=== PATIENT | male | born 1940 | race Caucasian/White ===

== ENCOUNTER 2016-05-21 08:01 | Outpatient (CLI) | payer MEDICARE, OTHER ==
[2014-11-10 10:48] VITALS: BP 121/69
[2016-05-21 08:29] LABS: BASOPHILS % 0.3 (0.0-1.5); EOSINOPHILS % 2.7 % (0.0-6.8); LYMPHOCYTES # 1.6 # k/uL (0.6-4.0); MEAN CORPUSCULAR HEMOGLOBIN 32.5 pg (28.0-34.0); MONOCYTES # 0.4 # k/uL (0.0-0.9); MONOCYTES % 5.8 % (0.0-11.0); NEUTROPHILS # 4.2 # k/uL (1.4-7.7)
[2016-05-21 08:52] LABS: eGFR (African) > 60; eGFR (Non-African) > 60
== END 2016-05-21 08:10 ==
LOC: LAB 08:01
PROVIDERS: ATTEND Family Medicine
DX: I10 Essential (primary) hypertension (principal); E11.9 Type 2 diabetes mellitus without complications; E78.1 Pure hyperglyceridemia; F79 Unspecified intellectual disabilities
CPT/HCPCS: 36415; 80053; 80061; 83036; 85025

== ENCOUNTER 2016-08-14 15:17 | Outpatient (CLI) | payer MEDICARE, OTHER ==
[2014-11-10 10:48] VITALS: BP 121/69
== END 2016-08-14 15:19 ==
LOC: POD 15:17
PROVIDERS: ATTEND Podiatrist
DX: B35.1 Tinea unguium (principal); M79.674 Pain in right toe(s); M79.675 Pain in left toe(s)
CPT/HCPCS: G0463

== ENCOUNTER 2016-10-22 16:20 | Outpatient (CLI) | payer MEDICARE ==
[2014-11-10 10:48] VITALS: BP 121/69
== END 2016-10-22 16:21 ==
LOC: LABRHC 16:20
PROVIDERS: ATTEND Family Medicine
DX: E11.9 Type 2 diabetes mellitus without complications (principal)
CPT/HCPCS: 82043

== ENCOUNTER 2016-11-27 14:43 | Outpatient (CLI) | payer MEDICARE ==
[2014-11-10 10:48] VITALS: BP 121/69
== END 2016-11-27 14:44 ==
LOC: POD 14:43
PROVIDERS: ATTEND Podiatrist
DX: B35.1 Tinea unguium (principal); M79.674 Pain in right toe(s); M79.675 Pain in left toe(s)
CPT/HCPCS: 11721; G0463

== ENCOUNTER 2017-02-11 08:08 | Outpatient (CLI) | payer MEDICARE, OTHER ==
[2014-11-10 10:48] VITALS: BP 121/69
[2017-02-11 08:30] LABS: BASOPHILS % 0.5 (0.0-1.5); EOSINOPHILS % 2.4 % (0.0-6.8); MEAN CORPUSCULAR HEMOGLOBIN 31.6 pg (28.0-34.0); MONOCYTES % 4.4 % (0.0-11.0); NEUTROPHILS # 5.4 # k/uL (1.4-7.7)
[2017-02-11 08:56] LABS: eGFR (African) > 60; eGFR (Non-African) > 60
== END 2017-02-11 08:10 ==
LOC: LAB 08:08
PROVIDERS: ATTEND Family Medicine
DX: E11.9 Type 2 diabetes mellitus without complications (principal); D64.9 Anemia, unspecified
CPT/HCPCS: 36415; 80053; 80061; 83036; 85025

== ENCOUNTER 2017-02-18 13:55 | Outpatient (CLI) | payer MEDICARE ==
[2014-11-10 10:48] VITALS: BP 121/69
[2017-02-18 14:17] LABS: APPEARANCE,URINE Clear (CLEAR); COLOR,URINE Yellow (YELLOW); OCCULT BLOOD,URINE 1+ (NEGATIVE); PH URINE 5.5 (5.0 - 8.0); UROBILINOGEN URINE 0.2 Eu (0.2-1.0)
[2017-02-18 14:36] LABS: AMORPHOUS SEDIMENT,UR FEW (NEGATIVE)
--- NOTE | 2017-02-18 16:26 | Diagnostic Imaging Report ---
[facility] [address] [facility].[address] [address] Report Submission Date: Feb 18, 2017 2:36:28 PM CDT Patient Study Name: JANET CLINTON Date: Feb 18, 2017 2:19:30 PM CDT Modality Type: CR Gender: M Description: CHEST : 42 Institution: [facility] Physician: LISA JUAREZ - OP Examination: Portable chest History: Chest discomfort Comparison exam: None available Findings: Single view of the chest demonstrates a hypoventilated inspiratory effort crowding of the cardiac and mediastinal silhouette. Chronic appearing interstitial changes. Lung jalloh without focal infiltrate. No effusion. Osseous structures are appropriate for age. Impression: Poor inspiratory effort. Chronic appearing interstitial changes. No gross consolidation effusion. Electronically signed on Feb 18, 2017 2:36:28 PM CDT by: Home Pritchard Lateral view now available for review Mild haziness involving the posterior sulci suggesting posterior infiltrate/ effusion. Addendum electronically signed by Home Pritchard on February 18, 2017 3:22:43 PM CDT [facility]
== END 2017-02-18 13:56 ==
LOC: LAB 13:55
PROVIDERS: ATTEND Family Medicine
DX: R06.09 Other forms of dyspnea (principal); R07.2 Precordial pain; R35.0 Frequency of micturition
CPT/HCPCS: 71020; 81002; 84484

== ENCOUNTER 2017-03-19 15:50 | Outpatient (CLI) | payer MEDICARE ==
[2014-11-10 10:48] VITALS: BP 121/69
== END 2017-03-19 15:52 ==
LOC: POD 15:50
PROVIDERS: ATTEND Podiatrist
DX: M79.674 Pain in right toe(s) (principal); M79.675 Pain in left toe(s); L60.0 Ingrowing nail; R60.9 Edema, unspecified
CPT/HCPCS: 11721; G0463

== ENCOUNTER 2017-06-10 09:57 | Emergency (ER) | payer MEDICARE, OTHER ==
--- NOTE | 2017-06-10 10:19 | ED Physician Documentation ---
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 Pt has had cough, and weakness x 1 day. He is much less active than usual. No n/v/diarrhea. Normal bm's.) - ROS CONST: other (Pt cannot give ROS) - PAST HX Past History: other (IDDM, HTN) Allergies/Adverse Reactions: Allergies Allergy/AdvReac Type Severity Reaction Status Date / Time No Known Allergies Allergy Verified 06/10/17 10:13 Home Medications: Ambulatory Orders Medication Instructions Recorded Docusate Sodium 100 mg PO HS u2 02/07/15 Azithromycin [Zithromax] 250 mg PO DAILY #6 tablet 06/10/17 Benzonatate [Tessalon] 100 mg PO Q8H PRN #20 capsule 06/10/17 - SOCIAL HX Smoking History: non-smoker - FAMILY HX Family History: No - VITAL SIGNS Vital Signs: Vital Signs Temp Pulse Resp BP Pulse Ox 121/69 11/10/14 10:47 - REVIEWED ASSESSMENTS Nursing Assessment Reviewed: Yes Vitals Reviewed: Yes Progress - Progress Progress: CXR PA/Lat: Findings: PA lateral chest demonstrate a normal cardiac and mediastinal silhouette. Generalized increased parenchymal haziness involving the left hemithorax when compared with the right. No blunting of the costophrenic margins. Articular degenerative changes. Impression: Generalized left hemithorax increased parenchymal haziness when compared with the right - while a component of this may artifactual and due to patient's body habitus, cannot exclude diffuse infiltrate: correlate with patient symptoms. No effusion. Rx Azithromycin 250 mg. Take two tablets by mouth on days #1. Take one tablet once daily for the next 4 days. Refill Tessalon 100 mg. Take one every 8 hrs as needed for cough. Disp: #20. General Adult Physical Exam - PHYSICAL EXAM GENERAL APPEARANCE: mild distress EENT: pharynx normal NECK: normal inspection, supple RESPIRATORY: no resp distress, chest non-tender, breath sounds normal CVS: reg rate & rhythm, heart sounds normal ABDOMEN: soft, no organomegaly, normal bowel sounds BACK: normal inspection, no CVA tenderness SKIN: warm/dry, normal color EXTREMITIES: non-tender, normal range of motion NEURO: motor nml, sensation nml, other (baseline mental status) Discharge Clincal Impression: possible early pneumonia Prescriptions: Azithromycin [Zithromax] 250 mg PO DAILY #6 tablet Benzonatate [Tessalon] 100 mg PO Q8H PRN #20 capsule PRN Reason: Cough Referrals: Goyo Yan MD [Primary Care Provider] - Condition: Stable Disposition: 01 HOME, SELF-CARE Decision to Admit: NO Decision Time: 11:41
[2017-06-10] MEDS ORDERED: 0.9 % SODIUM CHLORIDE 500 ML IV ONE (10:24)
[2017-06-10 10:47] LABS: BASOPHILS % 1.2 (0.0-1.5); EOSINOPHILS % 2.3 % (0.0-6.8); MEAN CORPUSCULAR HEMOGLOBIN 32.8 pg (28.0-34.0); MEAN CORPUSCULAR VOLUME 96.6 fl (80.0-100.0); MONOCYTES % 10.2 % (0.0-11.0); NEUTROPHILS # 3.6 # k/uL (1.4-7.7)
[2017-06-10 11:06] LABS: eGFR (African) > 60; eGFR (Non-African) > 60
--- NOTE | 2017-06-10 11:23 | Diagnostic Imaging Report ---
[facility] [address] [facility] [address] [place], [place]. [address] Report Submission Date: Jun 10, 2017 11:04:10 AM RN CARDIOLOGY Patient Study Name: JANET CLINTON Date: Jun 10, 2017 10:46:27 AM RN CARDIOLOGY Modality Type: CR Gender: M Description: CHEST : 42 Institution: [facility] Physician: AILYN SINGH Examination: PA and lateral chest. History: COUGH. (Hx) / COUGH (DICOM Hx) / COUGH (Pt comments) Comparison exam: 18 February 2017. Findings: PA lateral chest demonstrate a normal cardiac and mediastinal silhouette. Generalized increased parenchymal haziness involving the left hemithorax when compared with the right. No blunting of the costophrenic margins. Articular degenerative changes. Impression: Generalized left hemithorax increased parenchymal haziness when compared with the right - while a component of this may artifactual and due to patient's body habitus, cannot exclude diffuse infiltrate: correlate with patient symptoms. No effusion. Electronically signed on Jun 10, 2017 11:04:10 AM RN CARDIOLOGY by: Home POWELL
[2017-06-10 12:15] VITALS: BP 124/62
[2017-06-11 06:03] LABS: APPEARANCE,URINE CLEAR (CLEAR); COLOR,URINE YELLOW (YELLOW); OCCULT BLOOD,URINE TRACE-INTACT (NEGATIVE); PH URINE 5.5 (5.0 - 8.0)
[2017-06-11 06:04] LABS: UROBILINOGEN URINE 0.2 Eu (0.2-1.0)
== END 2017-06-10 12:13 | disposition home or self-care (01) ==
LOC: ED 09:57
DX: R05 Cough (principal)
CPT/HCPCS: 71020; 80053; 81002; 85025; J7060; 96365; 99282; 99283; S1016

== ENCOUNTER 2017-06-11 11:30 | Inpatient (IN) | payer MEDICARE, OTHER ==
--- NOTE | 2017-06-11 12:08 | ED Physician Documentation ---
Upper Respiratory Symptoms - HISTORIAN Historian: patient - HPI Chief Complaint: Cough/ Upper Respiratory Additional Information: 77yo white male with MR, started to have some increase irritability, decrease appetite, cough over the last 3 days. No wheezing noted. Not known if productive or not. Started running fever to 101 this AM. Was seen in the ED yesterday. Has been exposed to some flu. Blood sugars have been stable. Has been more lethargic today. Onset: days ago (2) Severity: mild Associated Symptoms: fever, chills, sweating, runny nose, productive cough, shortness of breath. denies: sinus pain, sinus drainage, sore throat, hoarseness, chest pain, bloody cough Worsened by Deep Breath: No Further Comments: no - ROS CONST/EYES: weakness CVS/RESP: shortness of breath. denies: chest pain, palpitations LYMPH: denies: leg swelling, rash GI/: denies: abdominal pain, vomiting, nausea, diarrhea - PAST HX Lung Disease: denies: asthma, COPD, pneumothorax PE Risk Factors: hypertension, other (MR, DM type 2) Surgeries/Procedures: none Immunizations: UTD Allergies/Adverse Reactions: Allergies Allergy/AdvReac Type Severity Reaction Status Date / Time No Known Allergies Allergy Verified 06/11/17 12:34 Home Medications: Ambulatory Orders Medication Instructions Recorded Docusate Sodium 100 mg PO HS u2 02/07/15 Azithromycin [Zithromax] 250 mg PO DAILY #6 tablet 06/10/17 Benzonatate [Tessalon] 100 mg PO Q8H PRN #20 capsule 06/10/17 - SOCIAL HX Smoking History: non-smoker Alcohol Use: none Drug Use: none - FAMILY HX Family History: no significant history - VITAL SIGNS Vital Signs: Vital Signs Temp Pulse Resp BP Pulse Ox 97.9 F 92 H 28 H 108/49 97 06/11/17 11:31 06/11/17 15:04 06/11/17 15:04 06/11/17 14:56 06/11/17 14:56 - REVIEWED ASSESSMENTS Nursing Assessment Reviewed: Yes Vitals Reviewed: Yes ED Results Lab/Radiology - Lab Results Lab Results: Lab Results 06/11/17 06/11/17 12:20 12:20 WBC 5.40 K/ul K/ul (4.00-12.00) RBC 3.72 M/ul L M/ul (3.90-5.20) Hgb 12.2 g/dL g/dL (12.0-18.0) Hct 36.7 % L % (37.0-53.0) MCV 98.5 fl fl (80.0-100.0) MCH 32.8 pg pg (28.0-34.0) MCHC 33.3 g/dL g/dL (30.0-36.0) RDW 12.9 % % (11.3-14.3) Plt Count 112 K/mm3 L K/mm3 (130-400) Seg Neutrophils % 73 % % (39-79) Band Neutrophils % 6 % % (0-12) Lymphocytes % 11 % L % (16-50) Monocytes % 9 % % (0-11) Reactive Lymphocytes 1 % % (0-5) Plt Morphology Comment Normal (NORMAL) RBC Morph Comment Normal (NORMAL) Sodium 138 mmol/L mmol/L (136-145) Potassium 4.9 mmol/L mmol/L (3.5-5.1) Chloride 99 mmol/L mmol/L (98-107) Carbon Dioxide 24 mmol/L mmol/L (22-30) BUN 19 mg/dL mg/dL (9-20) Creatinine 1.20 mg/dL mg/dL (0.66-1.25) Estimated Creat Clear 48 Est GFR ( Amer) > 60 (60 - ) Est GFR (Non-Af Amer) > 60 (60 - ) Glucose 117 mg/dL H mg/dL (74-106) Calcium 9.1 mg/dL mg/dL (8.4-10.2) Total Bilirubin 0.8 mg/dL mg/dL (0.2-1.3) AST 42 U/L U/L (15-46) ALT 44 U/L U/L (13-69) Alkaline Phosphatase 104 U/L U/L (38-126) Total Protein 6.9 g/dL g/dL (6.3-8.2) Albumin 3.8 g/dL g/dL (3.5-5.0) - Radiology Radiology Impressions: Examination: Portable chest History: COUGH, FEVER, POSSIBLE PNEUMONIA (Hx) / COUGH, FEVER (DICOM Hx) / COUGH , FEVER (Pt comments) Comparison exam: 10 June 2017 Findings: Single view of the chest demonstrates a poor inspiratory effort resulting in crowding of the normal cardiac and mediastinal silhouette. Mildly prominent parenchymal interstitium without focal consolidative process. No blunting of the costophrenic margins. Articular degenerative changes. Impression: Continued prominent parenchymal interstitium without focal consolidative process or effusion. Consider high-resolution CT chest for better lung parenchymal evaluation/definition. radiologist advised to get CT scan but patient will not stay still enough to get a good image. - Orders Orders: ED Orders Category Date Time Status CHEST 1VIEW [RAD] Routine Exams 06/11/17 Completed BLOOD CULTURE Routine Lab 06/11/17 12:45 Received CBC/PLATELET/DIFF Routine Lab 06/11/17 12:20 Completed CMP Routine Lab 06/11/17 12:20 Completed URINALYSIS Routine Lab 06/11/17 Ordered Chem Sticks Med 06/11/17 12:03 Discontinued 1 each MC NOW ONE Upper Respiratory Symptoms - EXAM General Appearance: alert, mild distress EENT: eyes nml inspection, ear nml, nose nml, rhinorrhea (clear), pharyngeal erythema (mild). No: pain over sinuses Neck: normal inspection, supple Respiratory: no resp. distress, no pain on inspiration, speaks full sentences, respiratory distress (mild), rales, rhonchi Abdomen: non-tender, no organomegaly CVS: reg rate & rhythm, heart sounds normal, equal pulses, murmur Skin: color nml, no rash, warm,dry Extremities: non-tender, no edema Neuro/Psych: mood/affect nml (at baseline) Discharge Clincal Impression: Pneumonia Qualifiers: Pneumonia type: due to unspecified organism Laterality: bilateral Lung location : lower lobe of lung Qualified Code(s): J18.9 - Pneumonia, unspecified organism Condition: Stable Disposition: ADMITTED INPATIENT Decision to Admit: [id number] Date of Decison to Admit: 06/11/17 Decision Time: 14:58
[2017-06-11 12:32] LABS: MEAN CORPUSCULAR HEMOGLOBIN 32.8 pg (28.0-34.0); MEAN CORPUSCULAR VOLUME 98.5 fl (80.0-100.0)
[2017-06-11 12:39] LABS: eGFR (African) > 60; eGFR (Non-African) > 60
[2017-06-11 12:59] LABS: MONOCYTES % 9 % (0-11); SEGMENTED NEUTROPHILS % 73 % (39-79)
--- NOTE | 2017-06-11 14:57 | Diagnostic Imaging Report ---
RAMIREZ MILLER [facility] [address] [facility] [address] [address] Report Submission Date: Jun 11, 2017 12:45:06 PM FINANCIAL ECONOMIST Patient Study Name: JANET CLINTON Date: Jun 11, 2017 12:25:02 PM FINANCIAL ECONOMIST Modality Type: CR Gender: M Description: CHEST : 42 Institution: [facility] Physician: RAMIREZ MILLER Examination: Portable chest History: COUGH, FEVER, POSSIBLE PNEUMONIA (Hx) / COUGH, FEVER (DICOM Hx) / COUGH , FEVER (Pt comments) Comparison exam: 10 June 2017 Findings: Single view of the chest demonstrates a poor inspiratory effort resulting in crowding of the normal cardiac and mediastinal silhouette. Mildly prominent parenchymal interstitium without focal consolidative process. No blunting of the costophrenic margins. Articular degenerative changes. Impression: Continued prominent parenchymal interstitium without focal consolidative process or effusion. Consider high-resolution CT chest for better lung parenchymal evaluation/definition. Electronically signed on Jun 11, 2017 12:45:06 PM FINANCIAL ECONOMIST by: Home POWELL
[2017-06-11] MEDS ORDERED: ACETAMINOPHEN 325 MG TABLET PO PRN (15:33)
[2017-06-11] MEDS ORDERED: LEVOFLOXACIN 500MG/D5W 100ML 100 ML IV ONE ×2 (16:01→21:49)
[2017-06-11] MEDS: BUSPIRONE HCL 5 MG TABLET PO SCH ×2 (16:12→21:35)
[2017-06-11] MEDS: SIMVASTATIN 20 MG TABLET PO SCH ×2 (16:12→21:36)
[2017-06-11] MEDS: ENOXAPARIN SODIUM 30 MG/0.3 ML DISP.SYRIN SQ SCH (16:12)
[2017-06-11] MEDS: IPRATROPIUM/ALBUTEROL SULFATE 3 ML AMPUL.NEB NEB SCH (16:48)
[2017-06-11 18:26] VITALS: BMI 24.5
[2017-06-11] MEDS: 0.9 % SODIUM CHLORIDE 1,000 ML IV SCH (18:30)
[2017-06-11] MEDS: LEVOFLOXACIN 500MG/D5W 100ML 500 MG in PREMIX BAG 1 BAG IV SCH (18:31)
[2017-06-11] MEDS: INSULIN DETEMIR 100 UNIT/ML 3ML PEN.INJCTR SQ SCH ×2 (18:44→21:36)
[2017-06-11] MEDS: BENZONATATE 100 MG CAPSULE PO SCH (21:36)
[2017-06-11] MEDS ORDERED: PHARMACY KEY 1 EACH EACH MC ONE (23:10)
[2017-06-11] MEDS: ZIPRASIDONE HCL 20 MG CAP PO SCH (23:20)
[2017-06-12] MEDS: IPRATROPIUM/ALBUTEROL SULFATE 3 ML AMPUL.NEB NEB SCH ×4 (00:23→17:59)
[2017-06-12] MEDS: 0.9 % SODIUM CHLORIDE 1,000 ML IV SCH ×3 (02:30→18:48)
[2017-06-12 06:17] LABS: APPEARANCE,URINE CLEAR (CLEAR); COLOR,URINE AMBER (YELLOW); OCCULT BLOOD,URINE 1+ (NEGATIVE); PH URINE 5.5 (5.0 - 8.0)
[2017-06-12 07:17] LABS: MEAN CORPUSCULAR HEMOGLOBIN 32.7 pg (28.0-34.0); MEAN CORPUSCULAR VOLUME 98.7 fl (80.0-100.0)
[2017-06-12 07:31] LABS: eGFR (African) > 60; eGFR (Non-African) > 60
[2017-06-12 07:47] LABS: MONOCYTES % 11 % (0-11); SEGMENTED NEUTROPHILS % 71 % (39-79)
[2017-06-12 08:11] LABS: ADENOVIRUS DNA NEGATIVE (NEGATIVE); SOURCE: NASOPHARYNGEAL SWAB
[2017-06-12] MEDS: BUSPIRONE HCL 5 MG TABLET PO SCH ×2 (09:48→20:05)
[2017-06-12] MEDS: AZITHROMYCIN 250 MG TABLET PO SCH (09:48)
[2017-06-12] MEDS: ASPIRIN EC 325 MG TABLET.DR PO SCH (09:48)
[2017-06-12] MEDS: LISINOPRIL 5 MG TABLET PO SCH (09:49)
[2017-06-12] MEDS: BENZONATATE 100 MG CAPSULE PO SCH ×2 (09:50→20:05)
[2017-06-12] MEDS: ZIPRASIDONE HCL 20 MG CAP PO SCH ×2 (09:51→21:14)
[2017-06-12] MEDS: DOCUSATE SODIUM 100 MG CAPSULE PO SCH (09:51)
[2017-06-12] MEDS: LEVOFLOXACIN 500MG/D5W 100ML 500 MG in PREMIX BAG 1 BAG IV SCH (09:51)
[2017-06-12] MEDS ORDERED: LEVOFLOXACIN 500MG/D5W 100ML 100 ML IV ONE (09:59)
[2017-06-12] MEDS: ENOXAPARIN SODIUM 30 MG/0.3 ML DISP.SYRIN SQ SCH (16:52)
[2017-06-12] MEDS: INSULIN DETEMIR 100 UNIT/ML 3ML PEN.INJCTR SQ SCH (20:06)
[2017-06-12] MEDS: SIMVASTATIN 20 MG TABLET PO SCH (20:08)
[2017-06-12] MEDS ORDERED: PHARMACY KEY 1 EACH EACH MC ONE (20:40)
[2017-06-13] MEDS: IPRATROPIUM/ALBUTEROL SULFATE 3 ML AMPUL.NEB NEB SCH ×4 (00:21→18:08)
[2017-06-13] MEDS: 0.9 % SODIUM CHLORIDE 1,000 ML IV SCH ×2 (05:08→16:29)
[2017-06-13] MEDS: BUSPIRONE HCL 5 MG TABLET PO SCH ×2 (09:15→20:39)
[2017-06-13] MEDS: DOCUSATE SODIUM 100 MG CAPSULE PO SCH (09:15)
[2017-06-13] MEDS: ASPIRIN EC 325 MG TABLET.DR PO SCH (09:16)
[2017-06-13] MEDS: AZITHROMYCIN 250 MG TABLET PO SCH (09:16)
[2017-06-13] MEDS: BENZONATATE 100 MG CAPSULE PO SCH ×2 (09:16→20:39)
[2017-06-13] MEDS: LISINOPRIL 5 MG TABLET PO SCH (09:16)
[2017-06-13] MEDS ORDERED: LEVOFLOXACIN 500MG/D5W 100ML 100 ML IV ONE ×3 (09:19→21:47)
[2017-06-13] MEDS: ZIPRASIDONE HCL 20 MG CAP PO SCH ×2 (09:20→20:39)
[2017-06-13] MEDS: LEVOFLOXACIN 500MG/D5W 100ML 500 MG in PREMIX BAG 1 BAG IV SCH (11:38)
[2017-06-13] MEDS: ENOXAPARIN SODIUM 30 MG/0.3 ML DISP.SYRIN SQ SCH (16:29)
[2017-06-13] MEDS: SIMVASTATIN 20 MG TABLET PO SCH (20:39)
[2017-06-13] MEDS: INSULIN DETEMIR 100 UNIT/ML 3ML PEN.INJCTR SQ SCH (21:21)
[2017-06-14] MEDS: 0.9 % SODIUM CHLORIDE 1,000 ML IV SCH (01:47)
[2017-06-14] MEDS: IPRATROPIUM/ALBUTEROL SULFATE 3 ML AMPUL.NEB NEB SCH ×3 (06:34→11:07)
[2017-06-14 09:09] VITALS: BP 132/74
[2017-06-14] MEDS: LISINOPRIL 5 MG TABLET PO SCH (09:24)
[2017-06-14] MEDS: ZIPRASIDONE HCL 20 MG CAP PO SCH (09:24)
[2017-06-14] MEDS: BENZONATATE 100 MG CAPSULE PO SCH (09:24)
[2017-06-14] MEDS: AZITHROMYCIN 250 MG TABLET PO SCH (09:24)
[2017-06-14] MEDS: BUSPIRONE HCL 5 MG TABLET PO SCH (09:24)
[2017-06-14] MEDS: DOCUSATE SODIUM 100 MG CAPSULE PO SCH (09:24)
[2017-06-14] MEDS: ASPIRIN EC 325 MG TABLET.DR PO SCH (09:24)
[2017-06-14] MEDS: LEVOFLOXACIN 500MG/D5W 100ML 500 MG in PREMIX BAG 1 BAG IV SCH (09:25)
--- NOTE | 2017-07-08 07:44 | History and Physical Report ---
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 Not known if cough is productive or not. Started running fever to 101 this AM. Was seen in the ED yesterday and felt to have a viral illnes. Has been exposed to some flu. Blood sugars have been stable. Has been more lethargic today. Started to have some increase dyspnea. Patient was positive for influenza type B. Patient was subsequently admitted to the hospital for further care and evaluation and treatment of his dyspnea. 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) Endocrine: Diabetes (type 2) - Past Surgical History Past Surgical History: None - Past Family History Mother Family History: Brother 1 Family History: - Past Social History Smoke: # pack years Occupation: disable Alcohol: None Drugs: None Lives: Alone Domestic Violence: Negative - Health Maintenance Health Maintenance: Cholesterol, Influenza Vaccine, Pneumococcal Vaccine Influenza Vaccine: Current for this Influenza Season Pneumonia Vaccine: Yes Resuscitation Status: Resusciation Status Resuscitation Status Full Code - Unable to Obtain History Unable to Obtain: Yes Review of Systems - Review of Systems Constitutional: Fever, Chills, Sweats, Weakness Eyes: negative: pain, vision change ENT: negative: Ear Pain, Ear Discharge, Nose Pain, Nose Discharge, Nose Congestion, Mouth Pain Respiratory: Cough, Dry, Shortness of Breath, SOB with Excertion. negative: Hemoptysis, Pleuritic Pain, Sputum Cardiovascular: negative: Chest Pain, Palpitations, Orthopnea, Edema Gastrointestinal: negative: Nausea, Vomiting, Abdominal Pain, Diarrhea, Constipation, Melena Genitourinary: negative: Dysuria, Frequency, Incontinence Musculoskeletal: negative: Neck Pain, Shoulder Pain Skin: Rash Neurological: Weakness, Confusion (at baseline). negative: Numbness, Incoordination, Change in Speech, Seizures - Medications/Allergies Allergies/Adverse Reactions: Allergies Allergy/AdvReac Type Severity Reaction Status Date / Time No Known Allergies Allergy Verified 06/11/17 12:34 Exam - Exam General: Oriented to Person, Cooperative, Mild distress. No: Alert (more lethargic thenbaseline), Oriented to Place, Oriented to Time HEENT: Atraumatic, PERRLA, Nose Mucous membr. moist/[place], Edentulous, Decreased Hearing Acuity. No: Mouth Mucous membr. moist/[place] (dry) Neck: Normal Range of Motion. No: Stridor, Rigidity, Lymphadenopathy Carotids: WNL Thyroid: WNL Lungs: Speaks full Sentences, Respiratory Distress, Wheezes, Rhonchi (course bilateral) Cardiovascular: Regular rate, Normal S1, Normal S2, No murmurs Abdomen: Normal bowel sounds, Soft, No tenderness, No hepatospenomegaly, No masses. No: Distended Integumentary: Normal, [place], Warm, Dry Extremities: No clubbing, No cyanosis, Other (trace edema) Neurological: Normal speech, Strength Equal Bilat, Normal tone, Sensation intact , Cranial nerves 3-12 NL, Reflexes 2+. No: Normal gait (ataxic aat baseline) Psych/Mental Status: Mental status NL (at baseline), Mood NL, Intact Judgment - Laboratory Results Laboratory Results: Laboratory Results 06/11/17 06/12/17 06/12/17 16:10 07:05 07:05 WBC 4.40 RBC 3.54 L Hgb 11.6 L Hct 34.9 L MCV 98.7 MCH 32.7 MCHC 33.1 RDW 12.9 Plt Count 254 Seg Neutrophils % 71 Band Neutrophils % 4 Lymphocytes % 14 L Monocytes % 11 Plt Morphology Comment Normal RBC Morph Comment Normal Sodium 141 Potassium 4.0 Chloride 104 Carbon Dioxide 21 L BUN 13 Creatinine 1.00 Estimated Creat Clear 57 Est GFR ( Amer) > 60 Est GFR (Non-Af Amer) > 60 Glucose 69 L Calcium 8.6 Total Bilirubin 0.6 AST 40 ALT 42 Alkaline Phosphatase 90 Total Protein 6.5 Albumin 3.5 Adenovirus DNA Negative B. pertussis DNA (PCR) Negative C. pneumoniae DNA (PCR) Negative Coronavirus OC43 (PCR) Negative Coronavirus HKU1 (PCR) Negative Coronavirus 229E (PCR) Negative Coronavirus NL63 (PCR) Negative Human Metapneumovir RNA Negative Influenza A (H1) PCR Negative Influenza A (H1N1) Ab Negative Influenza A (H1N1) Ag Negative Influenza A (H3) Ab Negative H.influenzae Type B Ab Positive H M.pneumoniae DNA (PCR) Negative Parainfluenza 1 (PCR) Negative Parainfluenza 2 (PCR) Negative Parainfluenza 3 (PCR) Negative Parainfluenza 4 (PCR) Negative RSV (PCR) Negative Rhinovirus (PCR) Negative Virus Source Nasopharyngeal swab Assessment/Plan - Assessment/Plan (1) Bronchitis Status: Acute Assessment: Patient will be started on Levaquin and azithromycin. I believe that the patient may be developing an early pneumonia that is not progress that it is showing up on the chest x-ray at this time. Influenza study are pending. 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 (3) Essential hypertension Status: Acute Assessment: Patient will be continued on home medications and blood pressure will be monitored. (4) Mental retardation Status: Acute Assessment: stable VTE Assessment - RISK FACTOR SCORE VTE <18 YEARS OF AGE: PATIENT IS < 18 YEARS OF AGE VTE RISK FACTOR SCORES: ACUTE INFECTION OTHER THEN SEPSIS, ACUTE RESPIRATORY FAILURE/SEVERE COPD, ANTICIPATED BED CONFINEMENT OR IMMOBILIZATION > 24 HOURS - RISK VTE HIGH RISK: SCORE OF 3-4 (RISK PROXIMAL DVT 4-8%) PROPHYLAXIS NEEDED
--- NOTE | 2017-07-08 07:58 | Inpatient Progress Note ---
Subjective - Required Recertification Statement I anticipate X number of days because-include discharge plan: 2 days - Review of Systems Events since last encounter: Patient continues to have some course rhonchi bilaterally. Patient influenza test did come back positive for type B influenza. Patient continues to have's some shortness of breath and dyspnea. Patient denies any chest pain at this time. General: Chills Pulmonary: Dyspnea, Cough. Denies: Pleuritic Chest Pain Cardiovascular: Denies: Chest Pain, Palpitations Gastrointestinal: Denies: Nausea, Vomiting, Abdominal Pain, Diarrhea, Constipation Objective - Exam Vitals and I&O: Vital Signs Temp 98.1 F 06/14/17 09:08 Pulse 63 06/14/17 14:00 Resp 20 06/14/17 14:00 BP 132/74 06/14/17 09:08 Pulse Ox 98 06/14/17 09:08 General: Alert, Oriented to Person, Cooperative. No: Oriented to Place, Oriented to Time Neck: Supple, No JVD Lungs: Clear to auscultation, Respiratory Distress. No: Wheezes, Rales, Rhonchi Cardiovascular: Regular rate, Normal S1, Normal S2, No murmurs Abdomen: Normal bowel sounds Extremities: No clubbing, No cyanosis Skin: Normal, [place], Warm, Dry Psych/Mental Status: Mental status NL - Results Results: Laboratory Results WBC 4.40 K/ul (4.00-12.00) 06/12/17 07:05 RBC 3.54 M/ul (3.90-5.20) L 06/12/17 07:05 Hgb 11.6 g/dL (12.0-18.0) L 06/12/17 07:05 Hct 34.9 % (37.0-53.0) L 06/12/17 07:05 MCV 98.7 fl (80.0-100.0) 06/12/17 07:05 MCH 32.7 pg (28.0-34.0) 06/12/17 07:05 MCHC 33.1 g/dL (30.0-36.0) 06/12/17 07:05 RDW 12.9 % (11.3-14.3) 06/12/17 07:05 Plt Count 254 K/mm3 (130-400) 06/12/17 07:05 Seg Neutrophils % 71 % (39-79) 06/12/17 07:05 Band Neutrophils % 4 % (0-12) 06/12/17 07:05 Lymphocytes % 14 % (16-50) L 06/12/17 07:05 Monocytes % 11 % (0-11) 06/12/17 07:05 Reactive Lymphocytes 1 % (0-5) 06/11/17 12:20 Plt Morphology Comment Normal (NORMAL) 06/12/17 07:05 RBC Morph Comment Normal (NORMAL) 06/12/17 07:05 Sodium 141 mmol/L (136-145) 06/12/17 07:05 Potassium 4.0 mmol/L (3.5-5.1) 06/12/17 07:05 Chloride 104 mmol/L (98-107) 06/12/17 07:05 Carbon Dioxide 21 mmol/L (22-30) L 06/12/17 07:05 BUN 13 mg/dL (9-20) 06/12/17 07:05 Creatinine 1.00 mg/dL (0.66-1.25) 06/12/17 07:05 Estimated Creat Clear 57 06/12/17 07:05 Est GFR ( Amer) > 60 (60-) 06/12/17 07:05 Est GFR (Non-Af Amer) > 60 (60-) 06/12/17 07:05 Glucose 69 mg/dL (74-106) L 06/12/17 07:05 Calcium 8.6 mg/dL (8.4-10.2) 06/12/17 07:05 Total Bilirubin 0.6 mg/dL (0.2-1.3) 06/12/17 07:05 AST 40 U/L (15-46) 06/12/17 07:05 ALT 42 U/L (13-69) 06/12/17 07:05 Alkaline Phosphatase 90 U/L (38-126) 06/12/17 07:05 Total Protein 6.5 g/dL (6.3-8.2) 06/12/17 07:05 Albumin 3.5 g/dL (3.5-5.0) 06/12/17 07:05 Urine Color [place] (YELLOW) 06/11/17 12:50 Urine Appearance Clear (CLEAR) 06/11/17 12:50 Urine pH 5.5 (5.0 - 8.0) 06/11/17 12:50 Ur Specific [place] 1.025 (1.010-1.030) 06/11/17 12:50 Urine Protein 3+ mg/dL (NEGATIVE) H 06/11/17 12:50 Urine Ketones Negative mg/dL (NEGATIVE) 06/11/17 12:50 Urine Occult Blood 1+ (NEGATIVE) H 06/11/17 12:50 Urine Nitrite Negative (NEGATIVE) 06/11/17 12:50 Urine Bilirubin Negative (NEGATIVE) 06/11/17 12:50 Urine Urobilinogen 1.0 Eu (0.2-1.0) 06/11/17 12:50 Ur Leukocyte Esterase Negative (NEGATIVE) 06/11/17 12:50 Urine Glucose Negative mg/dL (NEGATIVE) 06/11/17 12:50 Adenovirus DNA Negative (NEGATIVE) 06/11/17 16:10 B. pertussis DNA (PCR) Negative (NEGATIVE) 06/11/17 16:10 C. pneumoniae DNA (PCR) Negative (NEGATIVE) 06/11/17 16:10 Coronavirus OC43 (PCR) Negative (NEGATIVE) 06/11/17 16:10 Coronavirus HKU1 (PCR) Negative (NEGATIVE) 06/11/17 16:10 Coronavirus 229E (PCR) Negative (NEGATIVE) 06/11/17 16:10 Coronavirus NL63 (PCR) Negative (NEGATIVE) 06/11/17 16:10 Human Metapneumovir RNA Negative (NEGATIVE) 06/11/17 16:10 Influenza A (H1) PCR Negative (NEGATIVE) 06/11/17 16:10 Influenza A (H1N1) Ab Negative (NEGATIVE) 06/11/17 16:10 Influenza A (H1N1) Ag Negative (NEGATIVE) 06/11/17 16:10 Influenza A (H3) Ab Negative (NEGATIVE) 06/11/17 16:10 H.influenzae Type B Ab Positive (NEGATIVE) H 06/11/17 16:10 M.pneumoniae DNA (PCR) Negative (NEGATIVE) 06/11/17 16:10 Parainfluenza 1 (PCR) Negative (NEGATIVE) 06/11/17 16:10 Parainfluenza 2 (PCR) Negative (NEGATIVE) 06/11/17 16:10 Parainfluenza 3 (PCR) Negative (NEGATIVE) 06/11/17 16:10 Parainfluenza 4 (PCR) Negative (NEGATIVE) 06/11/17 16:10 RSV (PCR) Negative (NEGATIVE) 06/11/17 16:10 Rhinovirus (PCR) Negative (NEGATIVE) 06/11/17 16:10 Virus Source Nasopharyngeal swab 06/11/17 16:10 Assessment/Plan - Assessment/Plan (1) Influenza B Status: Acute Assessment: started on Tamiflu (2) Bronchitis Status: Acute (3) Essential hypertension Status: Acute Assessment: stable on home meds (4) Mental retardation Status: Acute Assessment: stable with no behavioral problems (5) Diabetes type 2, controlled Status: Chronic Qualifiers: Diabetes mellitus complication status: without complication Diabetes mellitus retirement insulin use: with retirement use Qualified Code(s): E11.9 - Type 2 diabetes mellitus without complications; Z79.4 - termination clerk (current) use of insulin; Z79.4 - penitentiary (current) use of insulin; Z79.4 - penitentiary ( current) use of insulin; Z79.4 - penitentiary (current) use of insulin Assessment: stable on home meds
--- NOTE | 2017-07-08 08:03 | Inpatient Progress Note ---
Subjective - Required Recertification Statement I anticipate X number of days because-include discharge plan: 1 day - Review of Systems Events since last encounter: Patient is much improved this morning. Patient visits breathing is much better. Patient continues to have a slight productive cough of some clear to slightly yellow phlegm. Appetite has been good. Diabetes mellitus and hypertension are stable. Patient continues to run a low-grade fever. General: Denies: Chills Pulmonary: Dyspnea, Cough Cardiovascular: Denies: Chest Pain, Palpitations Gastrointestinal: Denies: Nausea, Vomiting, Abdominal Pain, Diarrhea, Constipation, Melena Objective - Exam Vitals and I&O: Vital Signs Temp 98.1 F 06/14/17 09:08 Pulse 63 06/14/17 14:00 Resp 20 06/14/17 14:00 BP 132/74 06/14/17 09:08 Pulse Ox 98 06/14/17 09:08 General: Alert, Oriented to Person, Cooperative. No: Oriented to Place, Oriented to Time HEENT: Atraumatic Neck: Supple, No JVD Lungs: Normal air movement, Speaks full Sentences, Wheezes, Rales, Rhonchi Cardiovascular: Regular rate, Normal S1, Normal S2, No murmurs - Results Results: Laboratory Results WBC 4.40 K/ul (4.00-12.00) 06/12/17 07:05 RBC 3.54 M/ul (3.90-5.20) L 06/12/17 07:05 Hgb 11.6 g/dL (12.0-18.0) L 06/12/17 07:05 Hct 34.9 % (37.0-53.0) L 06/12/17 07:05 MCV 98.7 fl (80.0-100.0) 06/12/17 07:05 MCH 32.7 pg (28.0-34.0) 06/12/17 07:05 MCHC 33.1 g/dL (30.0-36.0) 06/12/17 07:05 RDW 12.9 % (11.3-14.3) 06/12/17 07:05 Plt Count 254 K/mm3 (130-400) 06/12/17 07:05 Seg Neutrophils % 71 % (39-79) 06/12/17 07:05 Band Neutrophils % 4 % (0-12) 06/12/17 07:05 Lymphocytes % 14 % (16-50) L 06/12/17 07:05 Monocytes % 11 % (0-11) 06/12/17 07:05 Reactive Lymphocytes 1 % (0-5) 06/11/17 12:20 Plt Morphology Comment Normal (NORMAL) 06/12/17 07:05 RBC Morph Comment Normal (NORMAL) 06/12/17 07:05 Sodium 141 mmol/L (136-145) 06/12/17 07:05 Potassium 4.0 mmol/L (3.5-5.1) 06/12/17 07:05 Chloride 104 mmol/L (98-107) 06/12/17 07:05 Carbon Dioxide 21 mmol/L (22-30) L 06/12/17 07:05 BUN 13 mg/dL (9-20) 06/12/17 07:05 Creatinine 1.00 mg/dL (0.66-1.25) 06/12/17 07:05 Estimated Creat Clear 57 06/12/17 07:05 Est GFR ( Amer) > 60 (60-) 06/12/17 07:05 Est GFR (Non-Af Amer) > 60 (60-) 06/12/17 07:05 Glucose 69 mg/dL (74-106) L 06/12/17 07:05 Calcium 8.6 mg/dL (8.4-10.2) 06/12/17 07:05 Total Bilirubin 0.6 mg/dL (0.2-1.3) 06/12/17 07:05 AST 40 U/L (15-46) 06/12/17 07:05 ALT 42 U/L (13-69) 06/12/17 07:05 Alkaline Phosphatase 90 U/L (38-126) 06/12/17 07:05 Total Protein 6.5 g/dL (6.3-8.2) 06/12/17 07:05 Albumin 3.5 g/dL (3.5-5.0) 06/12/17 07:05 Urine Color Mar[place]ruz (YELLOW) 06/11/17 12:50 Urine Appearance Clear (CLEAR) 06/11/17 12:50 Urine pH 5.5 (5.0 - 8.0) 06/11/17 12:50 Ur Specific [place] 1.025 (1.010-1.030) 06/11/17 12:50 Urine Protein 3+ mg/dL (NEGATIVE) H 06/11/17 12:50 Urine Ketones Negative mg/dL (NEGATIVE) 06/11/17 12:50 Urine Occult Blood 1+ (NEGATIVE) H 06/11/17 12:50 Urine Nitrite Negative (NEGATIVE) 06/11/17 12:50 Urine Bilirubin Negative (NEGATIVE) 06/11/17 12:50 Urine Urobilinogen 1.0 Eu (0.2-1.0) 06/11/17 12:50 Ur Leukocyte Esterase Negative (NEGATIVE) 06/11/17 12:50 Urine Glucose Negative mg/dL (NEGATIVE) 06/11/17 12:50 Adenovirus DNA Negative (NEGATIVE) 06/11/17 16:10 B. pertussis DNA (PCR) Negative (NEGATIVE) 06/11/17 16:10 C. pneumoniae DNA (PCR) Negative (NEGATIVE) 06/11/17 16:10 Coronavirus OC43 (PCR) Negative (NEGATIVE) 06/11/17 16:10 Coronavirus HKU1 (PCR) Negative (NEGATIVE) 06/11/17 16:10 Coronavirus 229E (PCR) Negative (NEGATIVE) 06/11/17 16:10 Coronavirus NL63 (PCR) Negative (NEGATIVE) 06/11/17 16:10 Human Metapneumovir RNA Negative (NEGATIVE) 06/11/17 16:10 Influenza A (H1) PCR Negative (NEGATIVE) 06/11/17 16:10 Influenza A (H1N1) Ab Negative (NEGATIVE) 06/11/17 16:10 Influenza A (H1N1) Ag Negative (NEGATIVE) 06/11/17 16:10 Influenza A (H3) Ab Negative (NEGATIVE) 06/11/17 16:10 H.influenzae Type B Ab Positive (NEGATIVE) H 06/11/17 16:10 M.pneumoniae DNA (PCR) Negative (NEGATIVE) 06/11/17 16:10 Parainfluenza 1 (PCR) Negative (NEGATIVE) 06/11/17 16:10 Parainfluenza 2 (PCR) Negative (NEGATIVE) 06/11/17 16:10 Parainfluenza 3 (PCR) Negative (NEGATIVE) 06/11/17 16:10 Parainfluenza 4 (PCR) Negative (NEGATIVE) 06/11/17 16:10 RSV (PCR) Negative (NEGATIVE) 06/11/17 16:10 Rhinovirus (PCR) Negative (NEGATIVE) 06/11/17 16:10 Virus Source Nasopharyngeal swab 06/11/17 16:10 Assessment/Plan - Assessment/Plan (1) Influenza B Status: Acute Assessment: stable, improving (2) Bronchitis Status: Acute Assessment: improved (3) Essential hypertension Status: Acute Assessment: stable on home meds (4) Mental retardation Status: Acute (5) Diabetes type 2, controlled Status: Chronic Qualifiers: Diabetes mellitus complication status: without complication Diabetes mellitus detention insulin use: with intermediate accountant use Qualified Code(s): E11.9 - Type 2 diabetes mellitus without complications; Z79.4 - care home (current) use of insulin; Z79.4 - care home (current) use of insulin; Z79.4 - long term care phlebotomist ( current) use of insulin; Z79.4 - care home (current) use of insulin Assessment: stable on home meds
--- NOTE | 2017-07-08 08:09 | Discharge Summary ---
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 No wheezing noted. Not known if cough is productive or not. Started running fever to 101 this AM. Was seen in the ED yesterday and felt to have a viral illnes. Has been exposed to some flu. Blood sugars have been stable. Has been more lethargic today. Started to have some increase dyspnea. Patient was subsequently admitted to the hospital for further care and evaluation and treatment of his dyspnea. Condition at Discharge: Stable Home Medications: Ambulatory Orders Medication Instructions Recorded Docusate Sodium 100 mg PO HS u2 02/07/15 Azithromycin [Zithromax] 250 mg PO DAILY #6 tablet 06/10/17 Azithromycin [Zithromax] 250 mg PO DAILY #4 tablet 06/13/17 Levofloxacin [Levaquin] 500 mg PO D #7 tablet 06/13/17 Consultations this Visit: None Procedures this Visit: None Allergies/Adverse Reactions: Allergies Allergy/AdvReac Type Severity Reaction Status Date / Time No Known Allergies Allergy Verified 06/11/17 12:34 Discharge Summary: Patient did have influenza screen done. Patient influenza screen did come back positive for influenza B. Patient was subsequently started on Tamiflu. Patient was continued on antibiotic therapy for possible bronchitis with questionable developing pneumonia. Patient breathing status did slowly improve. At the time to discharge patient was off of oxygen therapy. - Final Diagnosis (1) Influenza B Problems: resolving, stable (2) Bronchitis Problems: improved (3) Essential hypertension Problems: stable on home meds (4) Mental retardation Problems: stable with no behavioral problems (5) Diabetes type 2, controlled Problems: stable on home meds
--- NOTE | 2017-07-08 09:45 | Inpatient Progress Note ---
Subjective - Required Recertification Statement I anticipate X number of days because-include discharge plan: 2 - Review of Systems Events since last encounter: Patient should have been changed from observation to acute on 06/11/17 at 14:15. Unsure why order is not found. Please accept this addendum/order as patient should be acute from the stated date/time. Objective - Exam Vitals and I&O: Vital Signs Temp 98.1 F 06/14/17 09:08 Pulse 63 06/14/17 14:00 Resp 20 06/14/17 14:00 BP 132/74 06/14/17 09:08 Pulse Ox 98 06/14/17 09:08 - Results Results: Laboratory Results WBC 4.40 K/ul (4.00-12.00) 06/12/17 07:05 RBC 3.54 M/ul (3.90-5.20) L 06/12/17 07:05 Hgb 11.6 g/dL (12.0-18.0) L 06/12/17 07:05 Hct 34.9 % (37.0-53.0) L 06/12/17 07:05 MCV 98.7 fl (80.0-100.0) 06/12/17 07:05 MCH 32.7 pg (28.0-34.0) 06/12/17 07:05 MCHC 33.1 g/dL (30.0-36.0) 06/12/17 07:05 RDW 12.9 % (11.3-14.3) 06/12/17 07:05 Plt Count 254 K/mm3 (130-400) 06/12/17 07:05 Seg Neutrophils % 71 % (39-79) 06/12/17 07:05 Band Neutrophils % 4 % (0-12) 06/12/17 07:05 Lymphocytes % 14 % (16-50) L 06/12/17 07:05 Monocytes % 11 % (0-11) 06/12/17 07:05 Reactive Lymphocytes 1 % (0-5) 06/11/17 12:20 Plt Morphology Comment Normal (NORMAL) 06/12/17 07:05 RBC Morph Comment Normal (NORMAL) 06/12/17 07:05 Sodium 141 mmol/L (136-145) 06/12/17 07:05 Potassium 4.0 mmol/L (3.5-5.1) 06/12/17 07:05 Chloride 104 mmol/L (98-107) 06/12/17 07:05 Carbon Dioxide 21 mmol/L (22-30) L 06/12/17 07:05 BUN 13 mg/dL (9-20) 06/12/17 07:05 Creatinine 1.00 mg/dL (0.66-1.25) 06/12/17 07:05 Estimated Creat Clear 57 06/12/17 07:05 Est GFR ( Amer) > 60 (60-) 06/12/17 07:05 Est GFR (Non-Af Amer) > 60 (60-) 06/12/17 07:05 Glucose 69 mg/dL (74-106) L 06/12/17 07:05 Calcium 8.6 mg/dL (8.4-10.2) 06/12/17 07:05 Total Bilirubin 0.6 mg/dL (0.2-1.3) 06/12/17 07:05 AST 40 U/L (15-46) 06/12/17 07:05 ALT 42 U/L (13-69) 06/12/17 07:05 Alkaline Phosphatase 90 U/L (38-126) 06/12/17 07:05 Total Protein 6.5 g/dL (6.3-8.2) 06/12/17 07:05 Albumin 3.5 g/dL (3.5-5.0) 06/12/17 07:05 Urine Color [place]ruz (YELLOW) 06/11/17 12:50 Urine Appearance Clear (CLEAR) 06/11/17 12:50 Urine pH 5.5 (5.0 - 8.0) 06/11/17 12:50 Ur Specific [place] 1.025 (1.010-1.030) 06/11/17 12:50 Urine Protein 3+ mg/dL (NEGATIVE) H 06/11/17 12:50 Urine Ketones Negative mg/dL (NEGATIVE) 06/11/17 12:50 Urine Occult Blood 1+ (NEGATIVE) H 06/11/17 12:50 Urine Nitrite Negative (NEGATIVE) 06/11/17 12:50 Urine Bilirubin Negative (NEGATIVE) 06/11/17 12:50 Urine Urobilinogen 1.0 Eu (0.2-1.0) 06/11/17 12:50 Ur Leukocyte Esterase Negative (NEGATIVE) 06/11/17 12:50 Urine Glucose Negative mg/dL (NEGATIVE) 06/11/17 12:50 Adenovirus DNA Negative (NEGATIVE) 06/11/17 16:10 B. pertussis DNA (PCR) Negative (NEGATIVE) 06/11/17 16:10 C. pneumoniae DNA (PCR) Negative (NEGATIVE) 06/11/17 16:10 Coronavirus OC43 (PCR) Negative (NEGATIVE) 06/11/17 16:10 Coronavirus HKU1 (PCR) Negative (NEGATIVE) 06/11/17 16:10 Coronavirus 229E (PCR) Negative (NEGATIVE) 06/11/17 16:10 Coronavirus NL63 (PCR) Negative (NEGATIVE) 06/11/17 16:10 Human Metapneumovir RNA Negative (NEGATIVE) 06/11/17 16:10 Influenza A (H1) PCR Negative (NEGATIVE) 06/11/17 16:10 Influenza A (H1N1) Ab Negative (NEGATIVE) 06/11/17 16:10 Influenza A (H1N1) Ag Negative (NEGATIVE) 06/11/17 16:10 Influenza A (H3) Ab Negative (NEGATIVE) 06/11/17 16:10 H.influenzae Type B Ab Positive (NEGATIVE) H 06/11/17 16:10 M.pneumoniae DNA (PCR) Negative (NEGATIVE) 06/11/17 16:10 Parainfluenza 1 (PCR) Negative (NEGATIVE) 06/11/17 16:10 Parainfluenza 2 (PCR) Negative (NEGATIVE) 06/11/17 16:10 Parainfluenza 3 (PCR) Negative (NEGATIVE) 06/11/17 16:10 Parainfluenza 4 (PCR) Negative (NEGATIVE) 06/11/17 16:10 RSV (PCR) Negative (NEGATIVE) 06/11/17 16:10 Rhinovirus (PCR) Negative (NEGATIVE) 06/11/17 16:10 Virus Source Nasopharyngeal swab 06/11/17 16:10 Assessment/Plan - Assessment/Plan (1) Influenza B Status: Acute (2) Bronchitis Status: Acute (3) Essential hypertension Status: Acute (4) Mental retardation Status: Acute (5) Diabetes type 2, controlled Status: Chronic Qualifiers: Diabetes mellitus complication status: without complication Diabetes mellitus predatory animal exterminator insulin use: with predatory animal exterminator use Qualified Code(s): E11.9 - Type 2 diabetes mellitus without complications; Z79.4 - exterminator helper termite (current) use of insulin; Z79.4 - exterminator helper termite (current) use of insulin; Z79.4 - exterminator helper termite ( current) use of insulin; Z79.4 - exterminator helper termite (current) use of insulin
== END 2017-06-14 14:35 | disposition home or self-care (01) | DRG 195 ==
LOC: ED 11:30 → SOUTH 14:15 → OBSVTOIN 14:15
PROVIDERS: ADMIT Family Medicine; ATTEND Family Medicine
DX: J10.1 Influenza due to other identified influenza virus with other respiratory manifestations (principal); I10 Essential (primary) hypertension; E11.9 Type 2 diabetes mellitus without complications; F79 Unspecified intellectual disabilities
CPT/HCPCS: 36415; 71045; 80053; 81002; 85025; 87040; 87486; 87581; 87633; 87798; 94640; 94760; A9270; J1650; J1815; J1956; J7030; 71020; 96365; 99222; 99232; 99238; 99282; 99283; J7060; S1016

== ENCOUNTER 2017-07-16 14:51 | Outpatient (CLI) | payer MEDICARE, OTHER | END 2017-07-16 14:52 | LOC: POD 14:51 | PROVIDERS: ATTEND Podiatrist | DX: B35.1 Tinea unguium (principal); M79.674 Pain in right toe(s); M79.675 Pain in left toe(s) | CPT/HCPCS: 11721; G0463 ==

== ENCOUNTER 2018-02-25 15:12 | Outpatient (CLI) | payer MEDICARE, OTHER ==
[2018-02-25 16:26] LABS: eGFR (Non-African) 57
[2018-02-25 16:51] LABS: BASOPHILS % 0.3 (0.0-1.5); EOSINOPHILS % 2.2 % (0.0-6.8); MEAN CORPUSCULAR HEMOGLOBIN 33.4 pg (28.0-34.0); MONOCYTES % 5.3 % (0.0-11.0); NEUTROPHILS # 5.3 # k/uL (1.4-7.7)
== END 2018-02-25 15:13 ==
LOC: LAB 15:12
PROVIDERS: ATTEND Family Medicine
DX: E11.9 Type 2 diabetes mellitus without complications (principal); E78.1 Pure hyperglyceridemia
CPT/HCPCS: 36415; 80053; 80061; 83036; 84443; 85025

== ENCOUNTER 2018-03-21 15:43 | Emergency (ER) | payer MEDICARE, OTHER ==
[2018-03-21] MEDS ORDERED: 0.9 % SODIUM CHLORIDE 500 ML IV ONE (16:08)
[2018-03-21 16:55] LABS: BASOPHILS % 0.7 (0.0-1.5); EOSINOPHILS % 0.7 % (0.0-6.8); MEAN CORPUSCULAR HEMOGLOBIN 33.9 pg (28.0-34.0); MONOCYTES % 9.9 % (0.0-11.0); NEUTROPHILS # 5.1 # k/uL (1.4-7.7)
[2018-03-21] MEDS ORDERED: methylPREDNISolone SOD SUCC 125 MG/2 ML VIAL IVP ONE (16:59)
--- NOTE | 2018-03-21 17:02 | ED Physician Documentation ---
Upper Respiratory Symptoms - HPI Stated Complaint: cough, congestion Chief Complaint: Cough/ Upper Respiratory Additional Information: Patient presents to ED with a 2 week history of cough. Patient lives in assisted living and was seen in the clinic 2 days ago for the same symptoms. Augmentin was prescribed, he has taken 2 doses. He has not improved. His appetite has declined and he is still coughing. Onset: days ago (14) Duration: intermittent episodes Context: denies: recent foreign travel Severity: moderate Associated Symptoms: sinus drainage. denies: fever, chills Worsened by Deep Breath: No Further Comments: no - ROS CONST/EYES: weakness CVS/RESP: denies: chest pain, shortness of breath LYMPH: denies: ankle swelling GI/: denies: abdominal pain, vomiting, nausea, diarrhea NEURO/PSYCH: denies: dizziness, confusion MS/SKIN: denies: muscle aches - PAST HX Lung Disease: none PE Risk Factors: none Surgeries/Procedures: none Allergies/Adverse Reactions: Allergies Allergy/AdvReac Type Severity Reaction Status Date / Time No Known Drug Allergies Allergy Verified 03/21/18 16:05 Home Medications: Ambulatory Orders Medication Instructions Recorded Docusate Sodium 100 mg PO HS u2 02/07/15 Azithromycin [Zithromax] 250 mg PO DAILY #6 tablet 06/10/17 Azithromycin 500 mg PO DAILY #5 tablet 03/21/18 - SOCIAL HX Smoking History: non-smoker Alcohol Use: none Drug Use: none - FAMILY HX Family History: none - VITAL SIGNS Vital Signs: Vital Signs Temp Pulse Resp BP Pulse Ox 98.9 F 88 21 129/60 96 03/21/18 16:08 03/21/18 16:08 03/21/18 16:08 03/21/18 16:08 03/21/18 16:08 - REVIEWED ASSESSMENTS Nursing Assessment Reviewed: Yes Vitals Reviewed: Yes ED Results Lab/Radiology - Lab Results Lab Results: Lab Results 03/21/18 03/21/18 16:35 16:35 WBC 7.20 K/ul K/ul (4.00-12.00) RBC 3.49 M/ul L M/ul (3.90-5.20) Hgb 11.8 g/dL L g/dL (12.0-18.0) Hct 33.9 % L % (37.0-53.0) MCV 97.0 fl fl (80.0-100.0) MCH 33.9 pg pg (28.0-34.0) MCHC 34.8 g/dL g/dL (30.0-36.0) RDW 11.6 % % (11.3-14.3) Plt Count 268 K/mm3 K/mm3 (130-400) Neut % (Auto) 71.6 % % (39.0-79.0) Lymph % (Auto) 17.1 % % (16.0-50.0) [place] % (Auto) 9.9 % % (0.0-11.0) Eos % (Auto) 0.7 % % (0.0-6.8) Baso % (Auto) 0.7 (0.0-1.5) Neut # (Auto) 5.1 # k/uL # k/uL (1.4-7.7) Lymph # (Auto) 1.2 # k/uL # k/uL (0.6-4.0) [place] # (Auto) 0.7 # k/uL # k/uL (0.0-0.9) Eos # (Auto) 0.1 # k/uL # k/uL (0.0-0.6) Baso # (Auto) 0.1 # k/uL # k/uL (0.0-0.5) Sodium 139 mmol/L mmol/L (136-145) Potassium 4.9 mmol/L mmol/L (3.5-5.1) Chloride 102 mmol/L mmol/L (98-107) Carbon Dioxide 22 mmol/L mmol/L (22-30) BUN 31 mg/dL H mg/dL (9-20) Creatinine 1.60 mg/dL H mg/dL (0.66-1.25) Estimated Creat Clear 35 Est GFR ( Amer) 54 L (60 - ) Est GFR (Non-Af Amer) 45 L (60 - ) Glucose 128 mg/dL H mg/dL (74-106) Calcium 8.6 mg/dL mg/dL (8.4-10.2) Total Bilirubin 0.4 mg/dL mg/dL (0.2-1.3) AST 36 U/L U/L (15-46) ALT 38 U/L U/L (13-69) Alkaline Phosphatase 127 U/L H U/L (38-126) Total Protein 7.6 g/dL g/dL (6.3-8.2) Albumin 4.0 g/dL g/dL (3.5-5.0) - Orders Orders: ED Orders Category Date Time Status Place IV Lock 1T Care 03/21/18 16:07 Active CHEST 2VIEW [RAD] Stat Exams 03/21/18 Taken CBC/PLATELET/DIFF Routine Lab 03/21/18 16:35 Completed CMP Routine Lab 03/21/18 16:35 Completed 0.9 % Sodium Chloride [Normal Saline] 500 ml Med 03/21/18 16:08 Discontinued IV NOW methylPREDNISolone SOD SUCC [Solu-MEDROL] Med 03/21/18 16:59 Discontinued 125 mg IVP NOW ONE Upper Respiratory Symptoms - EXAM General Appearance: alert EENT: PERRL, rhinorrhea Neck: supple. No: lymphadenopathy Respiratory: no resp. distress, breath sounds nml Abdomen: non-tender CVS: reg rate & rhythm, heart sounds normal Skin: warm,dry Extremities: non-tender, no edema Neuro/Psych: oriented x3 Discharge Clincal Impression: Upper respiratory infection with cough and congestion Prescriptions: Azithromycin 500 mg PO DAILY #5 tablet Referrals: Goyo Yan MD [Primary Care Provider] - 2 Days Additional Instructions: 1. Stop taking Augmentin 2. Start Azithromycin instead 3. Add Zyrtec, Claritin or Nohemi daily/am 4. Add Benedryl 25mg daily at bedtime 5. Steroids were given in ED, this will make blood sugars elevated for next 24- 48 hours 6. Push fluids, stay hydrated 7. Return to ED for fever >101.5 or shortness of breath. Condition: Stable Decision to Admit: NO Date of Decison to Admit: 03/21/18 Decision Time: 17:18
[2018-03-21] MEDS ORDERED: AZITHROMYCIN 250 MG TABLET PO ONE (17:28)
--- NOTE | 2018-03-21 17:44 | Diagnostic Imaging Report ---
DANIELLE TAVAREZ [facility] [address] [facility] [address] [place] [address]. [phone] Report Submission Date: Mar 21, 2018 4:32:39 PM TUCK POINTER Patient Study Name: JANET CLINTON Date: Mar 21, 2018 4:05:27 PM TUCK POINTER Modality Type: DX Gender: M Description: CHEST : 42 Institution: [facility] Physician: DANIELLE TAVAREZ 2 views chest Clinical history: Cough Findings: Heart size is normal. The pulmonary vasculature normal. No pleural effusion, pneumothorax or alveolar consolidation. Impression: Negative portable chest Electronically signed on Mar 21, 2018 4:32:39 PM TUCK POINTER by: David POWELL
[2018-03-21 17:50] VITALS: BP 124/67
== END 2018-03-21 17:45 ==
LOC: ED 15:43
DX: J06.9 Acute upper respiratory infection, unspecified (principal); R05 Cough; R09.89 Other specified symptoms and signs involving the circulatory and respiratory systems
CPT/HCPCS: 36415; 71046; 80053; 85025; 96374; 99283; 99284; J2930; J7060; S1016

== ENCOUNTER 2018-05-16 09:02 | Outpatient (CLI) | payer MEDICARE, OTHER ==
[2018-05-16 10:21] LABS: eGFR (Non-African) 55
== END 2018-05-16 09:08 ==
LOC: LAB 09:02
PROVIDERS: ATTEND Family Medicine
DX: E11.9 Type 2 diabetes mellitus without complications (principal); E78.1 Pure hyperglyceridemia
CPT/HCPCS: 36415; 80053; 80061; 83036

== ENCOUNTER 2018-08-25 08:19 | Outpatient (CLI) | payer OTHER ==
[2018-08-25 08:37] LABS: MEAN CORPUSCULAR HEMOGLOBIN 33.1 pg (28.0-34.0)
[2018-08-25 08:38] LABS: BASOPHILS % 0.3 % (0.0-1.5); EOSINOPHILS % 2.8 % (0.0-6.8); MONOCYTES % 8.5 % (0.0-11.0); NEUTROPHILS # 4.3 # k/uL (1.4-7.7)
[2018-08-25 09:04] LABS: eGFR (Non-African) 53
== END 2018-08-25 08:20 ==
LOC: LAB 08:19
PROVIDERS: ATTEND Family Medicine
DX: E11.9 Type 2 diabetes mellitus without complications (principal)
CPT/HCPCS: 36415; 80053; 80061; 83036; 85025

== ENCOUNTER 2018-10-20 16:25 | Outpatient (CLI) | payer OTHER ==
--- NOTE | 2018-10-20 19:10 | Diagnostic Imaging Report ---
LANDY SHEFFIELD [facility] [address] [facility] [address] [place], [place]. [address] Report Submission Date: Oct 20, 2018 7:00:25 PM CDT Patient Study Name: JANET CLINTON Date: Oct 20, 2018 4:37:05 PM CDT Modality Type: DX Gender: M Description: FOOT 3 VIEWS OR MORE : 42 Institution: [facility] Physician: LANDY SHEFFIELD Exam: Right foot. History: Bruising base of 3rd and 4th toes. AP, lateral and oblique view of the Right foot are submitted. Well corticated deformity to the head of the 5th metatarsal is noted which may represent old injury. Degenerate changes at the interphalangeal joints are noted. No signs of acute fracture or dislocation is seen. Spurs are noted to extend off the plantar and posterior surfaces of the calcaneus. Impression: Degenerate changes. No acute fracture. Electronically signed on Oct 20, 2018 7:00:25 PM CDT by: Edu POWELL
== END 2018-10-20 16:28 ==
LOC: RAD 16:25
PROVIDERS: ATTEND Podiatrist Foot & Ankle Surgery
DX: M79.671 Pain in right foot (principal); R06.09 Other forms of dyspnea
CPT/HCPCS: 73630

== ENCOUNTER 2019-01-27 15:52 | Outpatient (CLI) | payer OTHER ==
[2019-01-14 17:56] VITALS: BP 118/72
[2019-02-09 13:36] LABS: APPEARANCE,URINE CLOUDY (CLEAR); COLOR,URINE YELLOW (YELLOW); OCCULT BLOOD,URINE 3+ (NEGATIVE); PH URINE 5.5 (5.0 - 8.0); UROBILINOGEN URINE 0.2 Eu (0.2-1.0)
== END 2019-01-27 16:00 ==
LOC: LAB 15:52
PROVIDERS: ATTEND Family Medicine
DX: R30.0 Dysuria (principal)
CPT/HCPCS: 81002; 87086; 87186

== ENCOUNTER 2019-01-29 12:15 | Emergency (ER) | payer OTHER ==
[2019-01-14 17:56] VITALS: BP 118/72
[2019-01-29] MEDS ORDERED: 0.9 % SODIUM CHLORIDE 50 ML IV.SOLN IV ONE (14:05)
[2019-01-29] MEDS ORDERED: cefTRIAXone SODIUM 1 GM INJ ONE (14:05)
[2019-01-29] MEDS ORDERED: LevoFLOXacin 500 MG TABLET ONE (14:05)
[2019-01-29] MEDS ORDERED: NORMAL SALINE 500 ML IV.SOLN IV ONE (14:05)
[2019-02-12 09:52] LABS: BASOPHILS % 0.5 % (0.0-1.5); NEUTROPHILS # 6.2 # k/uL (1.4-7.7)
[2019-02-12 09:53] LABS: eGFR (Non-African) 42
== END 2019-01-29 15:18 | disposition home or self-care (01) ==
LOC: ED 12:15
DX: N39.0 Urinary tract infection, site not specified (principal); B96.20 Unspecified Escherichia coli [E. coli] as the cause of diseases classified elsewhere
CPT/HCPCS: 80053; 85025; 87040; 87086; 87186; 99283; J0696; J7060; S1016

== ENCOUNTER 2019-03-18 08:07 | Outpatient (CLI) | payer OTHER ==
[2019-01-14 17:56] VITALS: BP 118/72
[2019-03-18 08:41] LABS: APPEARANCE,URINE CLEAR (CLEAR); COLOR,URINE YELLOW (YELLOW); OCCULT BLOOD,URINE NEGATIVE (NEGATIVE); PH URINE 5.5 (5.0 - 8.0); UROBILINOGEN URINE 0.2 Eu (0.2-1.0)
== END 2019-03-18 08:12 ==
LOC: LAB 08:07
PROVIDERS: ATTEND Family Medicine
DX: R82.90 Unspecified abnormal findings in urine (principal)
CPT/HCPCS: 81002